=== PATIENT | male | born 1985 | race Caucasian/White ===

== ENCOUNTER 2022-04-13 15:01 | Emergency (ER) | payer SELFPAY ==
[2022-04-13 15:11] VITALS: BP 143/90; PULSE 82; TEMP 99; BMI 32.9
[2022-04-13] MEDS ORDERED: valACYclovir HCL 1000 MG TABLET PO ONE (17:30)
[2022-04-13] MEDS ORDERED: DEXAMETHASONE LIQUID 0.5 MG/5 ML PO ONE (17:30)
[2022-04-13] MEDS ORDERED: DEXAMETHASONE SOD PHOSPHATE 10 MG/1 ML VIAL ONE (17:39)
[2022-04-13 17:41] LABS: BASO % 0.4 % (0-2.0); EOS % 1.7 % (0-4.5); HEMATOCRIT 43.4 % (35.4-49); LYMPH % 26.1 % (8-40); MCH 29.8 pg (25.7-33.7); MCHC 34.4 g/dl (32.0-35.9); MEAN CELL VOLUME 86.6 fl (80-96); MEAN PLT VOLUME 9.1 fl (7.5-11.1); MONO % 6.9 % (3.8-10.2); NEUT % 64.9 % (42.8-82.8); PLATELET COUNT 181 10^3/uL (134-434); RBC 5.02 M/mm3 (4.00-5.60); RDW 13.2 % (11.9-15.9); WHITE BLOOD COUNT 7.4 K/mm3 (4.0-10.0)
[2022-04-13] MEDS ORDERED: valACYclovir HCL 500 MG TABLET (FP) ONE (17:41)
[2022-04-13 17:49] LABS: INR 1.05 (0.83-1.09); PROTHROMBIN TIME (PATIENT) 12.1 SEC (9.7-13.0)
[2022-04-13 17:51] LABS: ACTIVATED PTT 35.2 SECONDS (25.2-36.5)
[2022-04-13 18:10] LABS: ALBUMIN 4.4 g/dl (3.4-5.0); CALCIUM 9.1 mg/dL (8.5-10.1)
[2022-04-13 18:11] LABS: BLOOD UREA NITROGEN 13.5 mg/dL (7-18)
[2022-04-13 18:15] LABS: BILIRUBIN,TOTAL 0.4 mg/dL (0.2-1); TOT PROT 7.7 g/dl (6.4-8.2)
[2022-04-15 16:09] LABS: EPSTEIN BARR ANTIBODY IgM <36.0 U/mL (0.0-35.9)
== END 2022-04-13 18:17 | disposition home or self-care (01) ==
LOC: JER 15:01 → JERFT 15:01
DX: G51.0 Bell's palsy (principal)
CPT/HCPCS: 36415; 70450-TC; 76536-TC; 80053; 85025; 85610; 85730; 86308; 86618; 86663; 86664; 86665; 86694; 87529; 87799; 99285-25